=== PATIENT | female | born 1995 | race Caucasian/White ===

== ENCOUNTER 2016-09-03 01:04 | Emergency (ER) | payer BC, MEDICAID ==
--- NOTE | 2016-09-03 02:36 | ER Document Report ---
ED GI/ - General Chief Complaint: Rectal Bleeding Stated Complaint: BLOOD IN STOOL Time Seen by Provider: 09/03/16 02:24 Notes: Patient is a 21-year-old female who comes emergency department for chief complaint of rectal bleeding. She states that she had an episode of loose stools which was normal, she went back to the bathroom and had another episode where she noticed blood, she states she went back and had a third episode and now she noticed clots and increased blood. She reports some pain in her lower abdomen which is a crampy sensation. Patient denies any injury, history of the same, she states she does not believe this is vaginal bleeding. She has a Nexplanon, she denies any other medical history. TRAVEL OUTSIDE OF THE [place] IN LAST 30 DAYS: No - Related Data Allergies/Adverse Reactions: No Known Allergies Allergy (Unverified 09/03/16 01:16) Past Medical History - General Information source: Patient - Social History Smoking Status: Never Smoker Chew tobacco use (# tins/day): No Frequency of alcohol use: None Drug Abuse: None Lives with: Family Family History: Reviewed & Not Pertinent Patient has suicidal ideation: No Patient has homicidal ideation: No - Medical History Medical History: Negative Renal/ Medical History: Denies: Hx Peritoneal Dialysis Surgical Hx: Negative - Immunizations Immunizations up to date: Yes Hx Diphtheria, Pertussis, Tetanus Vaccination: Yes Review of Systems - Review of Systems Constitutional: No symptoms reported EENT: No symptoms reported Cardiovascular: No symptoms reported Respiratory: No symptoms reported Gastrointestinal: See HPI Genitourinary: No symptoms reported Female Genitourinary: See HPI Musculoskeletal: No symptoms reported Skin: No symptoms reported Hematologic/Lymphatic: No symptoms reported Neurological/Psychological: No symptoms reported Physical Exam - Vital signs Vitals: Temp Pulse Resp BP Pulse Ox 97.8 F 86 18 113/74 98 09/03/16 01:12 09/03/16 01:12 09/03/16 01:12 09/03/16 01:12 09/03/16 01:12 Interpretation: Normal - General General appearance: Appears well, Alert In distress: None - HEENT Head: Normocephalic, Atraumatic Eyes: Normal Pupils: PERRL Pharynx: Normal Neck: Normal - Respiratory Respiratory status: No respiratory distress Chest status: Nontender Breath sounds: Normal. No: Decreased air movement Chest palpation: Normal - Cardiovascular Rhythm: Regular Heart sounds: Normal auscultation Murmur: No - Abdominal Inspection: Normal Distension: No distension Bowel sounds: Normal Tenderness: Nontender. No: Tender Organomegaly: No organomegaly - Rectal Tenderness: No Stool: Heme negative. No: Black, Bloody Hemorrhoids: None. No: Internal, External, Anal fissure, Mass - Back Back: Normal, Nontender. No: Tender - Extremities General upper extremity: Normal inspection, Nontender, Normal color, Normal ROM , Normal temperature General lower extremity: Normal inspection, Nontender, Normal color, Normal ROM , Normal temperature, Normal weight bearing. No: Cedric's sign - Neurological Neuro grossly intact: Yes Cognition: Normal Orientation: AAOx4 Abby Coma Scale Eye Opening: Spontaneous Abby Coma Scale Verbal: Oriented Abby Coma Scale Motor: Obeys Commands Abby Coma Scale Total: 15 Speech: Normal Cranial nerves: Normal Cerebellar coordination: Normal Motor strength normal: LUE, RUE, LLE, RLE Additional motor exam normals: Equal director speech language Sensory: Normal - Psychological Associated symptoms: Normal affect, Normal mood - Skin Skin Temperature: Warm Skin Moisture: Dry Skin Color: Normal Course - Re-evaluation Re-evalutation: No bleeding on rectal examination, accompanied by Anastasia PCT during examinations. No blood on stool occult testing. Soft abdomen on examination. Pelvic examination shows slight bleeding from the cervix, unremarkable otherwise. Wet mount shows blood but no other abnormalities. Urine shows elevated specific gravity and some protein but is otherwise unremarkable, hCG is negative. I discussed these workup results with patient, she states satisfaction, she states she still feels like she had rectal bleeding earlier, I do not appreciate any hemorrhoids or any other abnormalities on exam. Referral to GI placed, discussed follow-up, discussed return precautions, patient states satisfaction in agreement. - Vital Signs Vital signs: Temp Pulse Resp BP Pulse Ox 97.8 F 82 16 110/72 98 09/03/16 01:12 09/03/16 05:13 09/03/16 05:13 09/03/16 05:13 09/03/16 05:13 - Laboratory Result Diagrams: 09/03/16 02:50 Laboratory results interpreted by me: 09/03/16 02:40 Urine Protein 100 H Urine Blood SMALL H Discharge - Discharge Clinical Impression: Rectal bleeding, Vaginal bleeding Condition: Stable Disposition: HOME, SELF-CARE Additional Instructions: There is currently no blood in your stool and no rectal bleeding. There is vaginal bleeding, bleeding from the reproductive tract. Remaining workup to this point is unremarkable. If you continue to have rectal bleeding, please follow-up with the gastroenterology referral or with primary care as you might need a colonoscopy For further evaluation and management. Return to emergency department for any concerning or worsening symptoms including severe abdominal pain, fever, vomiting, dizziness, or any other concerning symptoms. Referrals: SAHIL MEDINA MD [ACTIVE STAFF] - Follow up as needed
[2016-09-03 03:03] LABS: ABSOLUTE BASOPHILS # (AUTO) 0.1 10^3/uL (0.0-0.2); ABSOLUTE EOSINOPHILS # (AUTO) 0.4 10^3/uL (0.0-0.6); ABSOLUTE LYMPHOCYTES (AUTO) 2.7 10^3/uL (0.5-4.7); ABSOLUTE MONOCYTES (AUTO) 0.7 10^3/uL (0.1-1.4); ABSOLUTE NEUT (AUTO) 5.7 10^3/uL (1.7-8.2); EOSINOPHILS % (AUTO) 4.6 % (0-6); HEMATOCRIT 41.4 % (36.0-47.0); HEMOGLOBIN 14.2 g/dL (12.0-15.5); HGB HCT DIFFERENCE 1.2; LYMPHOCYTES % (AUTO) 27.8 % (13-45); MEAN CORPUSCULAR HEMOGLOBIN 30.2 pg (27.0-33.4); MEAN CORPUSCULAR HGB CONC 34.4 g/dL (32.0-36.0); MEAN CORPUSCULAR VOLUME 88 fl (80-97); MONOCYTES % (AUTO) 6.9 % (3-13); RED BLOOD COUNT 4.71 10^6/uL (3.72-5.28); RED CELL DISTRIBUTION WIDTH 12.6 % (11.5-14.0); SEGMENTED NEUTROPHILS % (AUTO) 59.7 % (42-78); WHITE BLOOD COUNT 9.5 10^3/uL (4.0-10.5)
[2016-09-03 03:17] LABS: APPEARANCE,URINE CLEAR; BILIRUBIN,URINE NEGATIVE (NEGATIVE); GLUCOSE, URINE NEGATIVE (NEGATIVE); KETONES,URINE NEGATIVE (NEGATIVE); LEUKOCYTE ESTERASE,URINE NEGATIVE (NEGATIVE); NITRITE,URINE NEGATIVE (NEGATIVE); PROTEIN,URINE 100 mg/dL (NEGATIVE); URINE SPECIFIC GRAVITY 1.031; UROBILINOGEN,URINE NEGATIVE mg/dL (<2.0)
[2016-09-03 05:16] VITALS: BP 110/72
[2016-09-03 05:32] LABS: CHLAM PCR NOT DETECTED (NOT DETECT)
== END 2016-09-03 05:16 | disposition home or self-care (01) ==
LOC: ER 01:04
DX: N93.9 Abnormal uterine and vaginal bleeding, unspecified (principal); K62.5 Hemorrhage of anus and rectum; R19.7 Diarrhea, unspecified; Z79.899 Other long term (current) drug therapy
CPT/HCPCS: 36415; 81001; 81025; 82272; 85025; 87210; 87491; 87591; 99283